=== PATIENT | female | born 1960 | race Caucasian/White ===

== ENCOUNTER 2017-07-26 09:49 | Emergency (ER) | payer OTHER ==
[~2017-07-26] VITALS: Ht 175.3 cm; Wt 79.4 kg
[~2017-07-26 09:49] MED LIST: COMBIPATCH 0.01 EACH; RANITIDINE 150150 MG PO
--- NOTE | 2017-07-26 10:21 | [facility] Report ---
History of Present Issue Date/Time Seen by Provider 07/26/17 1000 Visit Reason Pt arrived:Walked Presenting Problem:PT C/O HEAD AND BACK ITCHING X1 MONTH Location if Accident: Onset of symptoms date/time:/ or onset unknown for:MEDICAL HX UNKNOWN Have you (or family members/close friends) recently traveled outside the [place]? N If Yes, where/when: Have you had exposure to infectious disease within the past month? TB? Other? Specify: c/o head and back itching for "about a month". Several cases of head lice at [employer] lately. Had spouse and a fried at [employer] check her head, no findings. Wants to be sure no lice prior to going on a "girls trip" this weekend. Reports constantly changing shampoos and conditioners, swims often in a home pool treated w/ chlorine, oftens dyes/highlights her hair. No treatment has been tried prior to arrival. Itching is not constant. intermittent and when she thinks about it, gets worse. No pain, rash, lesions. Source patient Exam Limitations no limitations ALLERGIES Coded Allergies: No Known Allergies (04/07/17) Home Medications Reported Medications Estradiol/Norethindrone Acet (Combipatch 0.05-0.14 MG Ptch) RANITIDINE HCL (Ranitidine HCl) 150 MG PO DAILY #60 History Medical History General CAD? No Angina: No ID: No Hypertension? No Hyperlipidemia? No CHF? No DVT? No PE? No COPD? No Asthma? No Anemia? No GERD? Yes Gastric ulcers? No GI Bleed? No Hernia? No Thyroid Problems? No Hypothyroidism? No CVA? No Seizures? No Diabetes? No Renal Insuffiency? No UTI? No Stones? No BPH? No GB Disease: No Nephritic Syndrome? No Asplenia? No Hepatitis? No Sickle Cell Disease? No Arthritis? Yes Migraines? No Cataracts? No Glaucoma? No MRSA? No HIV? No TB? No Anxiety? No Depression? Yes Cancer? No More? 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 Social History Smoking Hx Smoker: Never Smoker Tobacco: No Alcohol Alcohol: No Review of Systems All Other Systems Reviewed and Negative Constitutional denies fever, denies malaise Musculoskeletal denies back pain, denies neck pain Skin see HPI, denies change in color, dryness Psychiatric/Neurological denies headache Physical Exam Vital Signs Vital Signs Date Time Temp Pulse Resp B/P Pulse O2 O2 Flow FiO2 Ox Delivery Rate 07/26 0958 98.2 84 16 130/86 97 General Appearance normal appearance, no apparent distress, nicely dressed, freshly groomed Neck normal inspection Respiratory Status No: respiratory distress. Cardiovascular no peripheral edema Back normal inspection Neurologic alert, no motor/sensory deficits, oriented x 3 Skin normal color, warm/dry, small white oily flakes at roots throughout scalp consistent w/ dandruff, no concern for nits/lice; no visible rash or scaly lesions; skin surrounding hairline intact w/o rash Lymphatic no adenopathy Medical Decision Making LABS/Meds/Orders Pt receiving controlled substance in ED? No Departure Departure Time of Disposition 1018 Disposition DC Home or Self Care(routine) Clinical Impression Primary Impression: Dandruff in adult Condition STABLE Referrals NO REFERRAL Follow up with primary care as needed. Additional Instructions Dandruff can have several causes, including: Irritated, oily skin (seborrheic dermatitis). This condition, one of the most frequent causes of dandruff, is marked by red, greasy skin covered with flaky white or yellow scales. Seborrheic dermatitis may affect your scalp and other areas rich in oil glands, such as your eyebrows, the sides of your nose and the backs of your ears, your breastbone (sternum), your groin area, and sometimes your armpits. Not shampooing often enough. If you don't regularly wash your hair, oils and skin cells from your scalp can build up, causing dandruff. A yeastlike fungus (malassezia). Malassezia lives on the scalps of most adults. But, for some, it irritates the scalp and can cause more skin cells to grow. The extra skin cells and fall off, making them appear white and flaky in your hair or on your clothes. Why malassezia irritates some scalps isn't known. Dry skin. Flakes from dry skin are generally smaller and less oily than those from other causes of dandruff. And, redness or inflammation is unlikely. You'll probably have dry skin on other parts of the body, such as your legs and arms, too. Sensitivity to hair care products (contact dermatitis). Sometimes sensitivities to certain ingredients in hair care products or hair dyes can cause a red, itchy , scaly scalp. TREATMENT Dandruff can almost always be controlled, but dandruff treatment may take some trial and error. In general, daily cleansing with a gentle shampoo to reduce oiliness and skin cell buildup can often help mild dandruff. When regular shampoos fail, dandruff shampoos you can buy at a drugstore may succeed. But dandruff shampoos aren't all alike, and you may need to experiment until you find one that works for you. If you develop itching, stinging, redness or burning from any product, stop using it. If you develop an allergic reaction such as a rash, hives or difficulty breathing seek immediate medical attention. Dandruff shampoos are classified according to the medication they contain: Pyrithione zinc shampoos (such as Head & Shoulders, Albert Dandruff Relief 2 in 1). These contain the antibacterial and antifungal agent zinc pyrithione. This type of shampoo can reduce the fungus on your scalp that can cause dandruff and seborrheic dermatitis. Tar-based shampoos (such as Neutrogena T/Gel). Martin tar, a byproduct of the coal manufacturing process, helps conditions such as dandruff, seborrheic dermatitis and psoriasis. It slows how quickly skin cells on your scalp and flake off. If you have light-colored hair, this type of shampoo may cause discoloration. Shampoos containing salicylic acid (such as Neutrogena T/Ethan). These "scalp scrubs" help eliminate scale, but they may leave your scalp dry, leading to more flaking. Using a conditioner after shampooing can help relieve dryness. Selenium sulfide shampoos (such as Selsun Blue). These shampoos slow your skin cells from dying and may also reduce malassezia. Because they can discolor blond , [place] or chemically colored hair, be sure to use them only as directed, and rinse well after shampooing. Ketoconazole shampoos (such as Nizoral). Ketoconazole is a broad-spectrum antifungal agent that may work when other shampoos fail. It's available over-the -counter as well as by prescription. Try using one of these shampoos daily or every other day until your dandruff is controlled; then cut back to two or three times a week, as needed. If one type of shampoo works for a time and then seems to lose its effectiveness, try alternating between two types of dandruff shampoos. Read and follow the directions on each bottle of shampoo you try. Some need to be left on for a few minutes, while others should be immediately rinsed off. If you've shampooed faithfully for several weeks and there's still a dusting of dandruff on your shoulders, talk to your doctor or retail leasing agent. You may need a prescription-strength shampoo or treatment with a steroid lotion. Discharge Counseling Counseled pt/family regarding diagnosis, medications/RX, home care, follow up needs at 1029
[2017-07-26 10:22] VITALS: BP 130/86
== END 2017-07-26 10:24 | disposition home or self-care (01) ==
LOC: UTC 09:49
DX: L29.9 Pruritus, unspecified (principal)